=== PATIENT | male | born 1935 ===

== ENCOUNTER → 2018-07-29 | Day surgery (SDC) | payer OTHER, MEDICARE ==
[~2018-07-29] VITALS: Ht 175.3 cm; Wt 83.9 kg
--- NOTE | 2018-07-29 15:02 | Operative Report ---
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 He has best corrected vision of 20/70. The risks benefits and alternatives to surgery were discussed at length with the patient. Informed consent was obtained for lens exchange. The patient was brought to the operating room where he was placed under propofol sedation and a retrobulbar block was performed without complication. The left eye was prepped and draped in a normal sterile fashion. A speculum was placed in the left eye with good exposure. Paracenteses were made using stab incision blade. Intracameral lidocaine was instilled. Viscoelastic was used to distract the intraocular lens from the capsular bag. The haptics were found to be well incarcerated. A clear corneal incision was made using a crescent blade of approximately 3 mm in length followed by keratome blade. The haptics were amputated from the optic using intraocular scissors and the optic was placed in the anterior chamber. The optic was cut in half and removed from the eye entirely. A conjunctival peritomy was performed superotemporally and a sclerotomy was made 3-1/2 mm posterior to the limbus. An anterior vitrectomy through the pars plana was performed until there was no vitreous in the anterior chamber. The sulcus was defined using viscoelastic. A CT Carlene 602 intraocular lens of power 4.0 dpt was verified and confirmed. It was folded and placed in the sulcus. It was stable and centered. Viscoelastic was removed. Sclerotomies closed using 7-0 Vicryl suture. A clear corneal incision was closed with a 10-0 nylon suture. There was no presentation of vitreous in the anterior chamber. A conjunctival peritomy was closed using 8-0 Vicryl. Subcutaneous conjunctival dexamethasone was placed. Intracameral cefuroxime was placed. The wounds were found to be watertight and the eye held good pressure. Speculum was removed and the patient was brought to the recovery area without incident.
== END ==
LOC: STS 01:45
DX: T85.898A Other specified complication of other internal prosthetic devices, implants and grafts, initial encounter (principal); H43.02 Vitreous prolapse, left eye; I10 Essential (primary) hypertension; M10.9 Gout, unspecified; Y83.8 Other surgical procedures as the cause of abnormal reaction of the patient, or of later complication, without mention of misadventure at the time of the procedure
CPT/HCPCS: J1100; J2001; J2250; V2632